=== PATIENT | female | born 1990 ===

== ENCOUNTER → 2023-08-10 07:57 | Outpatient (CLI) | payer OTHER, SELFPAY ==
--- NOTE | ~2023-08-10 | MR_ITS ---
MRI of the lumbar spine Clinical History: Back pain Technique: Axial T2-weighted images, and sagittal T1-weighted, T2-weighted, and T2 fat-sat images wer e acquired. Findings: There is no fracture or subluxation of the lumbar spine. Vertebral bodies maintain normal h eight and alignment. No suspicious bone marrow signal abnormality seen. At L1-L2, L2-L3, L3-L4, there is no disc bulge or herniation. There are mild facet joint degenerative change at these levels. No spinal canal stenosis or neural foraminal narrowing at these levels. At L4-L5, there is minimal disc bulge and mild facet arthropathy. No central canal stenosis or neural foraminal narrowing. At L5-S1, there is a large central disc extrusion/herniation, which mildly compresses the ventral the thom sac, and probably impinges the descending right-sided S1-S2 level nerve root. Bilateral neural fo ramina are preserved. Paravertebral soft tissues otherwise are unremarkable. Impression: Large central disc extrusion/herniation L5-S1, which probably impinges the descending right-sided S1- S2 level nerve root, and minimally compresses the ventral thecal sac. Reviewed, dictated and finalized at [facility]. [employer] Impression: Large central disc extrusion/herniation L5-S1, which probably impinges the desc ending right-sided S1-S2 level nerve root, and minimally compresses the ventral thecal sac.
== END ==
DX: M51.27 Other intervertebral disc displacement, lumbosacral region (principal)
CPT/HCPCS: 72148